=== PATIENT | male | born 1955 | race Caucasian/White ===

== ENCOUNTER 2022-12-09 08:30 | Outpatient (OUT) | payer OTHER, SELFPAY ==
--- NOTE | 2022-12-09 08:42 | MR_ITS ---
The [address] [address] Patient Name: MARCO ROY MRN: [id number] date: 1955 Sex: M Assigned Patient Location: MRI Current Patient Location: MRI Accession/Order Number: [id number] Exam Date: 12/09/2022 09:16 Report Date: 12/09/2022 11:47 At the request of: JACKLYN IBARRA Procedure: MR knee RT wo con MR knee RT wo con, 12/09/2022 9:16 AM EDT INDICATION: Knee Effusion M25.461, Internal Derangement Of Right Knee COMPARISON: There is no appropriate prior study for comparison. TECHNIQUE: Multiplanar and multisequential MR images of the right knee were obtained without contrast. FINDINGS: Meniscus: Complex tear in the posterior horn of the medial meniscus with extension to the posterior roots is noted. No definite abnormality of lateral meniscus is noted. No abnormality of remaining of meniscal roots is noted. Ligaments: The ACL, PCL, LCL, MCL and iliotibial tract are unremarkable. Cartilage: There is focal fissuring and partial-thickness defect (less than 50%) and medial compartment The remainder of cartilages are unremarkable for age. Bone: There is no bone marrow edema. No osseus lesion. No acute fracture or dislocation. Muscles and tendons: The visualized portions of muscles and its tendons are unremarkable. There is trace intra-articular joint effusion. Thomas's cyst is noted. MR/MR knee RT wo con IMPRESSION: Complex tear in the posterior horn of the medial meniscus with mild degenerative changes in the medial compartment. Electronically authenticated by: FARHAD CASTILLO Date: 12/09/2022 11:47
--- NOTE | 2022-12-09 09:03 | XR_ITS ---
[address] [address] Patient Name: MARCO ROY MRN: [id number] date: 1955 Sex: M Assigned Patient Location: MRI Current Patient Location: MRI Accession/Order Number: [id number] Exam Date: 12/09/2022 09:10 Report Date: 12/09/2022 09:24 At the request of: JACKLYN IBARRA Procedure: XR foreign body eye EXAMINATION: XR foreign body eye HISTORY: Foreign Body Eye COMPARISON: No relevant comparison available. FINDINGS: ORBITS: Negative for a metallic foreign body. OTHER: Negative. XR/XR foreign body eye IMPRESSION: No metallic foreign body in the orbits Electronically authenticated by: MARCEL PEREZ Date: 12/09/2022 09:24
== END 2022-12-09 08:31 | disposition home or self-care (01) ==
LOC: MRI 08:33
PROVIDERS: PCP Family Medicine; Visit Provider Orthopaedic Surgery Orthopaedic Trauma
DX: M25.461 Effusion, right knee (principal); M23.91 Unspecified internal derangement of right knee; S83.231A Complex tear of medial meniscus, current injury, right knee, initial encounter
CPT/HCPCS: 70030; 73721